=== PATIENT | female | born 1980 | race Caucasian/White ===

== ENCOUNTER 2016-12-17 11:23 | Outpatient (CLI) | payer OTHER ==
[~2016-12-17] VITALS: Ht 156.2 cm; Wt 73.7 kg
[2016-12-17] MEDS ORDERED: NORG1TAB30 PO (11:38)
[2016-12-17 11:43] VITALS: BP 120/77
[2016-12-17 12:32] LABS: BASOPHILS # (AUTO) 0.1 10^3/uL (0.0-0.1); BASOPHILS % (AUTO) 1 % (0-10); EOSINOPHILS # (AUTO) 0.1 10^3/uL (0.0-0.3); EOSINOPHILS % (AUTO) 2 % (0-10); LYMPHOCYTES # (AUTO) 2.3 X 10^3 (1.0-4.0); LYMPHOCYTES % (AUTO) 33 % (12-44); MEAN CORPUSCULAR HEMOGLOBIN 29 PG (25-34); MEAN CORPUSCULAR HGB CONC 33 G/DL (32-36); MEAN CORPUSCULAR VOLUME 89 FL (80-99); MEAN PLATELET VOLUME 10.2 FL (7.4-10.4); MONOCYTES # (AUTO) 0.5 X 10^3 (0.0-1.0); MONOCYTES % (AUTO) 7 % (0-12); NEUTROPHILS # (AUTO) 3.9 X 10^3 (1.8-7.8); NEUTROPHILS % (AUTO) 57 % (42-75); PLATELET COUNT 209 10^3/uL (130-400); RED BLOOD COUNT 4.49 10^6/uL (4.35-5.85); RED CELL DISTRIBUTION WIDTH 12.4 % (10.0-14.5); WHITE BLOOD COUNT 6.9 10^3/uL (4.3-11.0)
[2016-12-26] MEDS ORDERED: OXYC-202 PO (07:51)
== END 2016-12-17 13:02 | disposition home or self-care (01) ==
LOC: PREOP 11:23
PROVIDERS: ATTEND Obstetrics & Gynecology
DX: R10.2 Pelvic and perineal pain; N92.0 Excessive and frequent menstruation with regular cycle
CPT/HCPCS: 36415; 85025; 87081

== ENCOUNTER 2016-12-26 10:30 | Day surgery (SDC) | payer OTHER ==
[~2016-12-26] VITALS: Ht 156.2 cm; Wt 73.7 kg
[~2016-12-26 10:30] MED LIST: D5 LR IV SOLUTION 1,000 ML IV SCH; ESTROGENS CONJ IV 25 MG/5 ML (PREMARIN) VIAL IVP ONE; KETOROLAC 30 MG/ML VIAL IVP ONE; MEPERIDINE (DEMEROL) INJ 100 MG/ML IM ONE; NORG1TAB30 PO; ONDANSETRON 4 MG/2 ML (SDV) Z0FRAN IVP PRN; OXYC-202 PO; PROMETHAZINE INJ 25 MG/ML (PHENERGAN) AMP IM ONE; oxyCODONE/APAP 10/325MG (PERCOCET 10) TABLET PO PRN
[2016-12-26 11:00] VITALS: BP 132/79
[2016-12-26] MEDS ORDERED: LEVOFLOXACIN 250 MG/D5W 50 ML (PRE-MIX) IV ONE (11:00)
[2016-12-26] MEDS ORDERED: CATHETER FLUSH 10 ML SYR IV PRN (11:00)
[2016-12-26] MEDS ORDERED: MIDAZOLAM 2 MG/2 ML (VERSED) VIAL ONE (11:05)
[2016-12-26] MEDS ORDERED: fentaNYL INJECTION 100 MCG/2 ML AMP ONE ×2 (11:05)
[2016-12-26] MEDS ORDERED: FAMOTIDINE 20MG/2ML IV (PEPCID) ONE (11:16)
[2016-12-26] MEDS: LACTATED RINGERS 1,000 ML IV PRN ×2 (11:27→13:30)
[2016-12-26] MEDS ORDERED: FAMOTIDINE 20MG/2ML IV (PEPCID) IV ONE (11:30)
[2016-12-26] MEDS ORDERED: ONDANSETRON 4 MG/2 ML (SDV) Z0FRAN IV ONE (11:30)
[2016-12-26] MEDS ORDERED: BUP/EPI 0.5% 1:200,000 (MARCAINE) 10ML VIAL IJ ONE (12:18)
[2016-12-26] MEDS ORDERED: DEXAMETHASONE 10 MG/ML (DECADRON) 1 ML VIAL ONE (13:01)
[2016-12-26] MEDS ORDERED: LACTATED RINGERS 1,000 ML IV ONE ×2 (13:01→14:15)
[2016-12-26] MEDS ORDERED: ONDANSETRON 4 MG/2 ML (SDV) Z0FRAN ONE ×2 (13:01→14:33)
[2016-12-26] MEDS ORDERED: LIDOCAINE PF 2% 5 ML (XYLOCAINE) VIAL ONE (13:01)
[2016-12-26] MEDS ORDERED: ROCURONIUM 50 MG/5 ML (ZEMURON) VIAL IV ONE (13:01)
[2016-12-26] MEDS ORDERED: proPOfol 200 MG/20 ML (DIPRIVAN) VIAL IV ONE (13:01)
[2016-12-26] MEDS ORDERED: SEVOFLURANE (ULTANE) 15 ML INHAL SOLN ONE ×4 (13:02→14:15)
[2016-12-26] MEDS ORDERED: NEOSTIGMINE (BLOXIVERZ ) 1 MG/1ML 10 ML VIAL ONE (14:19)
[2016-12-26] MEDS ORDERED: GLYCOPYRROLATE 0.2 MG/ML (ROBINUL) 2 ML VIAL ONE (14:19)
[2016-12-26] MEDS ORDERED: KETOROLAC 30 MG/ML VIAL ONE (14:33)
[2016-12-26] MEDS ORDERED: WATER (STERILE) FOR INJECTION 10 ML ONE (14:33)
[2016-12-26] MEDS ORDERED: morphine INJ 10 MG/ML 1ML (SYR OR VIAL) ONE (14:33)
[2016-12-26] MEDS ORDERED: ESTROGENS CONJ IV 25 MG/5 ML (PREMARIN) VIAL ONE (14:33)
[2016-12-26] MEDS ORDERED: ONDANSETRON 4 MG/2 ML (SDV) Z0FRAN IVP PRN (15:00)
[2016-12-26] MEDS ORDERED: MEPERIDINE (DEMEROL) INJ 50 MG/ML IVP PRN (15:00)
[2016-12-26] MEDS ORDERED: HYDROmorphone (DILAUDID) 2 MG/ML VIAL IVP PRN (15:00)
[2016-12-26] MEDS: morphine INJ 10 MG/ML 1ML (SYR OR VIAL) IVP PRN ×3 (15:04→15:16)
[2016-12-26 15:50] VITALS: BP 104/58
[2016-12-26 16:20] VITALS: BP 98/62
[2016-12-26 16:50] VITALS: BP 94/57
== END 2016-12-26 18:45 | disposition home or self-care (01) ==
LOC: SDC 10:30
PROVIDERS: ATTEND Obstetrics & Gynecology
DX: N93.8 Other specified abnormal uterine and vaginal bleeding (principal); N80.0 Endometriosis of uterus; N80.1 Endometriosis of ovary; N80.3 Endometriosis of pelvic peritoneum; N83.02 Follicular cyst of left ovary; N83.8 Other noninflammatory disorders of ovary, fallopian tube and broad ligament; N84.0 Polyp of corpus uteri; D23.62 Other benign neoplasm of skin of left upper limb, including shoulder; L82.1 Other seborrheic keratosis
CPT/HCPCS: 84703